=== PATIENT | female | born 1960 | race Caucasian/White ===

== ENCOUNTER → 2016-10-20 | Outpatient (CLI) | payer OTHER ==
[~2016-10-20] MED LIST: FLONASE 50 MCG/16 GM NOSE; LEVOTHROID (SY88 MCG PO; LISINOPRIL-HCT1 EACH PO; LOPRESSOR50 MG PO; MULTI-VITAMIN1 EACH PO; PRILOSEC20 MG PO
== END | disposition disaster alternative care site (69) ==
LOC: GBCOE 09:27
DX: R92.8 Other abnormal and inconclusive findings on diagnostic imaging of breast (principal)
CPT/HCPCS: G0206; G0279